=== PATIENT | female | born 1960 | race Caucasian/White ===

== ENCOUNTER 2022-06-04 08:05 | Observation (INO) | payer BC, SELFPAY ==
[2022-06-04] VITALS (24 sets, daily range): BP systolic 87–123; BP diastolic 53–86; PULSE 54–68; RESP 9–26; TEMP 36–37; O2SAT 85–100; BMI 26.6
--- NOTE | ~2022-06-04 | XR_ITS ---
EXAMINATION: XR chest 2V DATE: 06/04/2022 08:56 INDICATION: Shortness of breath. TECHNIQUE: Frontal and lateral views of the chest were obtained. COMPARISON: None. FINDINGS: The chest demonstrates clear lungs without pneumonia, pleural effusion, or pneumothorax. Th e heart size is normal. Surgical clips in the right upper quadrant are likely from cholecystectomy. IMPRESSION: 1. No acute cardiopulmonary disease. Reviewed, dictated and finalized at location B.
--- NOTE | 2022-06-04 08:10 | ECG_ITS ---
Measurements Intervals [place] Rate: 66 P: 57 SD: 155 QRS: -14 QRSD: 110 T: 72 QT: 398 QTc: 418 Interpretive Statements SINUS RHYTHM POOR R-WAVE PROGRESSION MODERATE T-WAVE ABNORMALITY, CONSIDER LATERAL ISCHEMIA ABNORMAL ECG NO PREVIOUS ECG AVAILABLE FOR COMPARISON Electronically Signed On 06-04-2022 14:58:00 CDT by Ahmet Rocha M.D.
--- NOTE | 2022-06-04 08:33 | PC.NURSE ---
Pt said she took [employer] COORDIN[employer].
[2022-06-04 08:58] LABS: Basophils Percent Auto 0.5 % (0.2-1.2); Eosinophils Absolute Auto 0.1 K/mm3 (0-0.3); Eosinophils Percent Auto 1.9 % (0-4.4); Hematocrit 42.1 % (37.0-47.0); Hemoglobin 13.9 g/dL (12.0-15.0); Immature Granulocyte Absolute 0.02 K/mm3 (0.00-0.031); Immature Granulocyte Percent A 0.3 % (0-0.5); Lymphocytes Absolute Auto 1.92 K/mm3 (0.9-3.2); Lymphocytes Percent Auto 33.2 % (18.3-44.2); Mean Corpuscular Hemoglobin 30.8 pg (26-34); Mean Corpuscular Volume 93.1 fl (80-100); Mean Platelet Volume 10.1 fl (7.4-10.4); Monocytes Absolute Auto 0.5 K/mm3 (0.1-0.6); Monocytes Percent Auto 8.3 % (2.6-8.5); Neutrophils Absolute Auto 3.2 K/mm3 (1.3-6.7); Neutrophils Percent Auto 55.8 % (45.5-73.1); Platelet Count Result 249 k/mm3 (150-375); Red Blood Count 4.52 M/mm3 (4.2-5.4); Red Cell Distribution Width 12.6 % (11.5-14.5); White Blood Count 5.8 K/mm3 (4.5-10.0)
[2022-06-04 09:10] LABS: Partial Thromboplastin Time 28.5 SECONDS (22.3-36.8)
[2022-06-04 09:55] LABS: Alanine Aminotransferase 26 U/L (6-35); Albumin Level 4.6 g/dL (3.5-5.1); Alkaline Phosphatase 63 U/L (38-126); Anion Gap 10 mmol/L (8-16); Aspartate Amino Transferase 28 U/L (14-36); Bilirubin,Total 0.6 mg/dL (0.2-1.3); Blood Urea Nitrogen 19 mg/dL (7-17); Calcium 9.6 mg/dL (8.4-10.2); Carbon Dioxide 25 mmol/L (22-30); Chloride 105 mmol/L (98-107); Estimated CRCL calculation 70 ml/min; Estimated Glomerular Filt Rate > 60; Glucose 97 mg/dL (65-110); Lipase 70 U/L (23-300); Potassium 3.7 mmol/L (3.4-5.0); Sodium 140 mmol/L (137-145)
[2022-06-04] MEDS: NITROGLYCERIN SL 0.4 MG TABLET SUBLINGUAL (10:02)
[2022-06-04 10:04] LABS: Troponin I < 0.012 ng/mL (0.000-0.034)
--- NOTE | 2022-06-04 10:08 | ED.GENADULT ---
HPI - General Adult General Chief complaint: Chest Pain Stated complaint: CP Time Seen by Provider: 06/04/22 08:09 History of Present Illness HPI narrative: Patient is a 61-year-old female who presents ER with chest and back pain. Ongoing for 2 days. She feels a pressure in her central chest and has had aching pain in between her shoulder blades. Slight worsening with exertion. No radiation up the neck or down the arm. No runny nose or sore throat or productive cough. Reports family history in both her mother and father of heart disease. Her recently had a STEMI and she is currently under stress due to placing her father in memory care. Patient is found no alleviating factors. She has tried Tylenol and ibuprofen which typically help her pain but not at this time. Related Data Home Medications Medication Instructions Recorded Confirmed alendronate 35 mg tablet 35 mg PO WEEKLY 06/14/21 06/04/22 biotin 5,000 mcg disintegrating 5,000 mcg PO DAILY 06/14/21 06/04/22 tablet krill oil 500 mg capsule 500 mg PO DAILY 06/14/21 06/04/22 losartan 100 mg tablet 100 mg PO DAILY 06/14/21 06/04/22 omeprazole 40 mg capsule,delayed 40 mg PO DAILY 06/14/21 06/04/22 release spironolactone 50 mg tablet 50 mg PO DAILY 06/14/21 06/04/22 Allergies Allergy/AdvReac Type Severity Reaction Status Date / Time Penicillins Allergy Mild Rash Verified 06/04/22 08:31 Review of Systems Review of Systems: All systems reviewed & are unremarkable except as noted in HPI and below Constitutional: Constitutional: Denies chills and Denies fever(s) ENT: Denies nasal congestion and Denies sore throat Cardiovascular: Cardiovascular: Reports chest pain, Denies rapid heart rate and Denies radiating jaw, neck or arm pain Respiratory: Respiratory: Denies cough and Denies dyspnea Gastrointestinal: Gastrointestinal: Denies abdominal pain, Denies diarrhea, Denies nausea and Denies vomiting Genitourinary: Genitourinary: Denies nocturia and Denies dysuria Musculoskeletal: Musculoskeletal: Reports back pain, Denies arthralgias and Denies joint swelling [facility] Past Medical History Medical History (Updated 06/04/22 @ 18:00 by Brian Carlson MD) Gastroesophageal reflux disease Hypertension Surgical History Surgical History (Updated 06/04/22 @ 14:12 by Amber Brown PA-C) History of cholecystectomy History of tonsillectomy Family History Family History (Updated 06/04/22 @ 14:53 by Juliane Sanchez RN) Mother Family history of heart disease in male family member before age 55 Rectal cancer Family history of diabetes mellitus in first degree relative Hypertension Father Family history of heart disease in male family member before age 55 Malignant neoplasm of prostate Hypertension Cerebrovascular accident Other Family history of allergic disorder Social History Social History (Updated 06/04/22 @ 14:13 by Amber Brown PA-C) Social History: Surrogate medical decision maker: Code status: Smoking status: Never smoker Alcohol intake: never Substance use: never Additional occupation/education comments: [employer] , [employer]. Spiritual care concerns: No Exam Narrative: GENERAL: Well-appearing, well-nourished, and in no acute distress. HEAD: Normocephalic, atraumatic. EYES: PERRL and EOMI. CHEST: Clear to auscultation. No respiratory distress. HEART: Regular rate and rhythm. Normal peripheral pulses. ABDOMEN: Soft, nontender, nondistended. EXTREMITIES: Normal range of motion. No edema. SKIN: Warm, dry, no rash. NEURO: Alert and oriented x3. PSYCH: Normal mood and affect. Course Vital Signs Vital signs: Vital Signs Temperature 98.6 F 06/04/22 08:12 Pulse Rate 68 06/04/22 08:12 Respiratory Rate 18 06/04/22 08:12 Blood Pressure 123/86 06/04/22 08:12 Pulse Oximetry 100 06/04/22 08:12 Oxygen Delivery Room Air 06/04/22 08:12 Temperature 96.8 F L 10/0
[2022-06-04] MEDS: SODIUM CHLORIDE 0.9% IV 500 ML 999 ML IV CONT (10:37)
[2022-06-04 12:05] LABS: Troponin I < 0.012 ng/mL (0.000-0.034)
--- NOTE | 2022-06-04 14:00 | PM.IMHP ---
H&P: HPI History of Present Illness Date/Time: 06/04/22 14:00 Chief Complaint: Chest pain. Narrative: This is a very pleasant 61-year-old female with hypertension and GERD who presented to the emergency department from home for evaluation of chest pain. She has had intermittent pressure-like discomfort in the substernal region radiating through to the scapula for the last 2 days. She has perhaps a little bit of shortness of breath and nausea with these episodes but not every time. She has not noticed a pattern as to when it occurs and she specifically denies that it occurs with exertion. In fact she exercises daily (walks or stationary bike) and she has not noticed that her chest discomfort is worse with these activities. Initially she thought perhaps her GERD was acting up and she felt that the discomfort in her scapula were is related to scoliosis. Her initial troponin was negative in the emergency department. EKG showed a sinus rhythm with some moderate T-wave abnormalities in the lateral leads and she is being admitted in this setting. About 14 years ago she had some chest discomfort at which time she had a stress echocardiogram due to abnormal findings on EKG. That stress echo was reportedly unremarkable and she has not had issues since that time. At the time my evaluation she is resting comfortably. She has occasional ?fluttering? in her chest and is noticed that she has occasional PVCs. She admits that she has had high stress recently as her had a heart attack 2 weeks ago and she recently had to move her father to a memory care center. Review of Systems Review of Systems: Twelve systems were reviewed. No syncope or near syncope. She has no known history of cardiac disease. Fever, chills, or sweats. No recent cold or flu symptoms. No abdominal or epigastric pain. She has had some nausea. No vomiting. No diarrhea. Except as documented, all other systems were reviewed and are negative. [facility] Past Medical History Medical History Gastroesophageal reflux disease Hypertension Surgical History Surgical History History of cholecystectomy History of tonsillectomy Family History Family History Mother Family history of heart disease in male family member before age 55 Rectal cancer Family history of diabetes mellitus in first degree relative Hypertension Father Family history of heart disease in male family member before age 55 Malignant neoplasm of prostate Hypertension Cerebrovascular accident Other Family history of allergic disorder Social History Social History (Updated 06/05/22 @ 00:12 by Amber Brown PA-C) Social History: Surrogate medical decision maker: Joel Ramires, spouse. Code status: Full code. 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 Spiritual care concerns: No Meds Home Medications and Allergies Home Medications Medication Instructions Recorded Confirmed Type alendronate 35 mg tablet 35 mg PO WEEKLY 06/14/21 06/04/22 History biotin 5,000 mcg disintegrating 5,000 mcg PO DAILY 06/14/21 06/04/22 History tablet krill oil 500 mg capsule 500 mg PO DAILY 06/14/21 06/04/22 History losartan 100 mg tablet 100 mg PO DAILY 06/14/21 06/04/22 History omeprazole 40 mg capsule,delayed 40 mg PO DAILY 06/14/21 06/04/22 History release spironolactone 50 mg tablet 50 mg PO DAILY 06/14/21 06/04/22 History Allergies Allergy/AdvReac Type Severity Reaction Status Date / Time Penicillins Allergy Mild Rash Verified 06/04/22 08:31 Vital Signs Vital Signs - 24 hr 06/04/22 08:12 06/04/22 08:18 06/04/22 08:24 Temperature 98.6 F Pulse Rate 68 63 Respiratory Rate 18 Blood Press
--- NOTE | 2022-06-04 14:55 | ADMGEN ---
This patient, Valentín Ramires, was admitted to IMU Room 201-01. Patient/family oriented to hospital policies and general routines including ID bracelet, bed and alarms, visiting hours, pain management, procedures, bathroom and other care routines, personal items, smoking policy, room service/diet, and visiting hours. Information on how to activate the Rapid Response Team has been discussed. Patient/Family are encouraged to report perceived risks to care and to ask questions if they do not understand what they are told or what they should do.
[2022-06-04 15:04] LABS: Troponin I < 0.012 ng/mL (0.000-0.034)
--- NOTE | 2022-06-04 15:10 | PM.CNCAR ---
Assessment and Plan Assessment and plan (1) Chest pain: Code(s): R07.9 - Chest pain, unspecified Status: Acute Plan This is a 61-year-old lady who has no prior history of cardiac disease who has been under lot of stress with her 's illness as well as her father having to be placed in a memory care facility. She has been having episodes of interscapular back pain sometimes radiating into the anterior aspect of the chest for about a week or so. The symptoms are obviously concerning. Fortunately they are not exertional and fortunately she does not have any evidence of myocardial injury with negative troponins. I am going to recommend a stress echocardiogram tomorrow as an ischemia evaluation. Further recommendations are pending those findings Junior Hooper MD [facility] History of Present Illness History of Present Illness Consult date/time: 06/04/22 15:10 Consult reason: chest pain Reason For Visit: Chest Pain Narrative: This is a very pleasant 61-year-old lady I am seeing at the request of the hospitalist because of chest pain. She is unknown to me prior to this encounter and does not have any prior history of coronary artery disease. She states that she came to the emergency room this morning because she has been having episodes of chest and interscapular back pain for about 3 or 4 days before coming in this began up to a week ago with episodes of interscapular back pain and several days ago this became associated with a sensation of some central chest discomfort. The symptoms seem to come and go in an unpredictable fashion they are not necessarily associated with physical activity such as walking. She was does exercise on a stationary bike that she has at home for fitness and has not noticed main difficulty performing this type of exertion. In any event she became concerned about her cardiac status because her recently suffered a myocardial infarction and because of the symptoms presented to the emergency room this morning. She also says that she has been under a lot of stress because she has recently had to have her father placed in a memory care facility. In the emergency room she appeared to be stable her electrocardiogram shows sinus rhythm with a leftward axis and precordial nonspecific T-wave abnormality. Her troponin levels times the 1st 2 sets are normal. She is in no distress at this time and offers no complaints she is currently admitted to IMU for evaluation. She denies any history of diabetes or dyslipidemia. She is a lifelong nonsmoker. Does not have a family history of premature coronary artery disease. 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 She does report that she had an ischemic workup about 12 or 13 years ago for symptoms of occasional interscapular pain and states that to the best of her recollection the results were negative Review of Systems Constitutional: Constitutional: Reports no additional constitutional complaints Eyes: Eyes: Reports no additional eye complaints ENT: Reports system reviewed and no additional complaints, except as documented Cardiovascular: Cardiovascular: Reports as per HPI Respiratory: Respiratory: Reports no additional respiratory complaints Gastrointestinal: Gastrointestinal: Reports no additional gastrointestinal complaints Musculoskeletal: Musculoskeletal: Reports as per HPI Comments: Intermittent interscapular pain Neurologic: Reports system reviewed and no additional complaints, except as documented Endocrine: Endocrine: Reports no additional endocrine complaints Hematologic/Lymphatic: Hematologic/Lymphatic: Reports no additional hematologic/lymphatic complaints Allergic/Immunologic: Allergic/Immunologic: Reports no additional allergic/immunologic complaints [facility] Past Medical History Medical History (Updated 06/04/22 @ 14:13 by Amber Brown PA-C) Gastroesophageal reflux disease Hypertension Surgical His
[2022-06-04] MEDS: ACETAMINOPHEN 325 MG TABLET 650 MG PO (21:57)
[2022-06-05] VITALS (15 sets, daily range): BP systolic 93–118; BP diastolic 55–77; PULSE 57–74; RESP 14–20; TEMP 36.4–36.8; O2SAT 97–100
--- NOTE | 2022-06-05 | EST_ITS ---
Patient Info Name: Valentín Ramires Age: 61 years : 1960 Gender: Female Ht: 65 in Wt: 155 lbs BSA: 1.81 m2 HR: 67 bpm BP: 116 / 75 mmHg Heart Rhythm: Sinus Rhythm Technical Quality: Fair Exam Date: 06/05/2022 11:39 AM Exam Location: [facility] Patient Status: Inpatient Admit Date: 06/04/2022 Staff Ordering Physician: Junior Hooper MD Security Investigator: Zakiya Weiss RDCS Attending Provider: ANA LILIA SANDERS NP Referring Physician: Sandie SANDERS; Exam Type: CA stress echo Study Info Indications R07.9 - Chest pain, unspecified Treadmill exercise stress echocardiogram is performed. Summary 1. While at rest, patient became tachycardic with heart rates in the 120s BPM. ECG showing 1-1.5mm upsloping ST depressions in the inferolateral leads. 2. Target heart rate was met, however, patient underwent minimal exercise. 3. At 48 seconds into exercise, ST depressions progressed to 2mm upsloping depressions with ST elevation in lead AVR. These changes improved with decrease in heart rate. 4. No arrhythmias were observed during the examination. 5. Normal left venticular systolic function with no regional wall motion abnormalities noted at rest. 6. Left ventricular ejection fraction estimated at 60-65%. 7. Overall global left ventricular systolic function Improved post stress. 8. No regional wall motion abnormalities noted post stress. 9. Significantly abnormal stress ECG concerning for ischemia, however, stress echocardiogram images were normal. Stress Echo Findings Left Ventricle Normal left venticular systolic function with no regional wall motion abnormalities noted at rest. Left ventricular ejection fraction estimated at 60-65%. Overall global left ventricular systolic function Improved post stress. No regional wall motion abnormalities noted post stress. Ventricles Name Value Normal LV Fractional Shortening/Ejection Fraction 2D/MM Visually Estimated EF 60 % 54-74 Protocol: [place] Stress ECG Details Stage: REST Duration (min): 2 min : 8 sec Speed (mph): 0.0 Grade (%): 0 HR (bpm): 61 SBP (mmHg): 116 DBP (mmHg): 75 METS: --- Stage: REST Duration (min): 16 min : 43 sec Speed (mph): 0.0 Grade (%): 0 HR (bpm): 137 SBP (mmHg): 116 DBP (mmHg): 75 METS: --- Stage: STAGE 1 Duration (min): 0 min : 48 sec Speed (mph): 0.0 Grade (%): 0 HR (bpm): 161 SBP (mmHg): 116 DBP (mmHg): 75 METS: --- Stage: RECOVERY Duration (min): 0 min : 11 sec Speed (mph): 0.0 Grade (%): 0 HR (bpm): 152 SBP (mmHg): 116 DBP (mmHg): 75 METS: --- Stage: RECOVERY Duration (min): 1 min : 11 sec Speed (mph): 0.0 Grade (%): 0 HR (bpm): 113 SBP (mmHg): 116 DBP (mmHg): 75 METS: --- Stage: RECOVERY Duration (min): 2 min : 11 sec Speed (mph): 0.0 Grade (%): 0 HR (bpm): 109 SBP (mmHg): 116 DBP (mmHg): 75 METS: --
[2022-06-05 04:54] LABS: Cholesterol 181 mg/dL (0-200); HDL Direct 38 mg/dL; Triglycerides 133 mg/dL (<150)
[2022-06-05 05:04] LABS: LDL Cholesterol Direct 96 mg/dL
[2022-06-05 05:34] LABS: Thyroid Stimulating Hormone Reflex 0.637 uIU/mL (0.465-4.68)
[2022-06-05] MEDS: ASPIRIN 81 MG CHEWABLE TABLET PO (08:11)
[2022-06-05] MEDS: PANTOPRAZOLE 40 MG TABLET PO ×2 (08:11→17:08)
--- NOTE | 2022-06-05 13:07 | PM.PNCARD ---
Progress Note: A&P Assessment and Plan (1) Chest pain: Code(s): R07.9 - Chest pain, unspecified Status: Acute Assessment and Plan: Week long history of intrascapular back pain which sometimes radiates to the anterior chest. An exercise stress test was performed today. ECG portion of the test was significantly abnormal with ST changes consistent with ischemia. However, echocardiogram was normal. Despite normal echo images, recommended coronary angiogram because of significantly abnormal ECG portion of stress test. Patient agrees to undergo coronary angiogram. Discussed possible risks of cath with patient and her and they agree to proceed. NPO after midnight. Further recommendations following the cath. Subjective Date/time seen: 06/05/22 13:07 Cardiology follow up for chest pain Feeling well today and denies any chest pain, shortness of breath. She does feel very anxious prior to her stress test today. Review of Systems Constitutional: Constitutional: Reports no additional constitutional complaints Eyes: Eyes: Reports no additional eye complaints ENT: Reports system reviewed and no additional complaints, except as documented Cardiovascular: Cardiovascular: Reports as per HPI Respiratory: Respiratory: Reports no additional respiratory complaints Gastrointestinal: Gastrointestinal: Reports no additional gastrointestinal complaints Musculoskeletal: Musculoskeletal: Reports as per HPI Neurologic: Reports system reviewed and no additional complaints, except as documented Endocrine: Endocrine: Reports no additional endocrine complaints Hematologic/Lymphatic: Hematologic/Lymphatic: Reports no additional hematologic/lymphatic complaints Allergic/Immunologic: Allergic/Immunologic: Reports no additional allergic/immunologic complaints Exam Const: General: comfortable and no acute distress Other: Pleasant lady appearing her stated age comfortable cooperative no distress at all HENMT: Mouth: Yes moist mucous membranes Eyes: Sclera: sclerae normal Pupils: Equal, round and reactive pupils present Neck: Neck: supple and no JVD Other: Normal carotid upstrokes without any bruits Resp: Effort & Inspection: normal respiratory effort Auscultation: clear to auscultation bilaterally Cardio: Rate: regular rate Rhythm: regular rhythm Other: PMI is not displaced and of normal activity normal S1-S2 no murmur no gallop GI: Auscultation: normal bowel sounds Skin: General skin exam: normal color Neuro: Cranial nerves: Yes Equal, round and reactive pupils present Extrem: General: normal to inspection Objective Data Vital Signs Vital Signs: Vital Signs - 24 hr 06/04/22 14:01 06/04/22 15:03 06/04/22 14:50 Temperature 36.2 C L Pulse Rate 67 58 L Respiratory Rate 13 16 Blood Pressure 101/68 95/57 L Pulse Oximetry 100 96 100 Oxygen Delivery Room Air 06/04/22 14:50 06/04/22 16:00 06/04/22 16:00 Temperature 36.0 C L Pulse Rate 60 61 Respiratory Rate 18 Blood Pressure 96/53 L Pulse Oximetry 97 Oxygen Delivery Room Air 06/04/22 20:00 06/04/22 20:00 06/04/22 20:00 Temperature 36.5 C Pulse Rate 61 63 Respiratory Rate 18 Blood Pressure 101/70 Pulse Oximetry 97 Oxygen Delivery Room Air 06/04/22 23:20 06/04/22 22:00 06/05/22 00:05 Temperature 36.7 C Pulse Rate 66 61 Respiratory Rate 18 Blood Pressure 107/61 Pulse Oximetry 97 97 Oxygen Delivery Room Air 06/05/22 00:00 06/05/22 02:00 06/05/22 04:00 Temperature Pulse Rate 60 59 L Respiratory Rate Blood Pressure Pulse Oximetry Oxygen Delivery Room Air 06/05/22 04:00 06/05/22 04:00 06/05/22 06:00 Temperature 36.5 C Pulse Rate 62 57 L 64 Respiratory Rate 18 Blood Pressure 108/55 L Pulse Oximetry 99 Oxygen Delivery 06/05/22 08:00 06/05/22 08:00 06/05/22 08:00 Temperature 36.4 C Pulse Rate 64 71 70 Respiratory Rate 18 14 Blood Pr
[2022-06-05] MEDS: LOSARTAN POTASSIUM 100 MG TABLET PO (14:40)
[2022-06-05] MEDS: SPIRONOLACTONE 50 MG TABLET PO (14:40)
--- NOTE | 2022-06-05 17:18 | PM.IMPN ---
Progress Note: A&P Assessment and Plan (1) Chest pain: Code(s): R07.9 - Chest pain, unspecified Status: Acute (2) Hypertension: Code(s): I10 - Essential (primary) hypertension Status: Acute (3) Gastroesophageal reflux disease: Code(s): K21.9 - Gastro-esophageal reflux disease without esophagitis Status: Acute Plan The patient presented to the emergency department for evaluation of substernal chest pressure that has been occurring intermittently over the last couple of days, at times associated with mild shortness of breath and nausea. Serial troponins normal. EKG showed normal sinus rhythm with poor R-wave progression and moderate T-wave abnormalities. Patient underwent stress echo. While at rest prior to the test, patient became tachycardic with heart rate 120 with EKG showing 1-1.[address] depression in inferior lateral leads. At 48 seconds into exercise, ST depression progressed to 2 mm upsloping depressions with ST elevation in lead AVR. These changes improved with decrease in heart rate. Echo showed normal LV systolic function with no regional wall motion abnormalities noted at rest or post stress. Given the incongruency of her findings with abnormal EKG but normal echo, heart catheterization was offered. Plan is for patient to be held overnight, NPO after midnight with heart catheterization to be performed in the morning. Subjective Date/time seen: 06/05/22 0800 Interval history: 61yo female with HTN here for chest pain. Patient describes her chest discomfort as ?heavy? with a ?flutter?. Symptoms did not appear to change with activity. There were not pleuritic are palpable. She does have a headache today. No radiation to the pain. No shortness of breath or lightheadedness. Exam Narrative: AF 97.7 106/63 70 14 100% ra Gen - NARD Chest - CTA bilaterally, nml RR CV - RRR S1/S2; Tele showing no significant dysrhythmias Abd - Soft, NT/ND, Positive BS Ext - No pedal edema Psych - Nml mood and affect Skin - Warm and dry Objective Data Vital Signs Vital Signs: Vital Signs - 24 hr 06/04/22 20:00 06/04/22 20:00 06/04/22 20:00 Temperature 97.7 F Pulse Rate 61 63 Respiratory Rate 18 Blood Pressure 101/70 Pulse Oximetry 97 Oxygen Delivery Room Air 06/04/22 23:20 06/04/22 22:00 06/05/22 00:05 Temperature 98.1 F Pulse Rate 66 61 Respiratory Rate 18 Blood Pressure 107/61 Pulse Oximetry 97 97 Oxygen Delivery Room Air 06/05/22 00:00 06/05/22 02:00 06/05/22 04:00 Temperature Pulse Rate 60 59 L Respiratory Rate Blood Pressure Pulse Oximetry Oxygen Delivery Room Air 06/05/22 04:00 06/05/22 04:00 06/05/22 06:00 Temperature 97.7 F Pulse Rate 62 57 L 64 Respiratory Rate 18 Blood Pressure 108/55 L Pulse Oximetry 99 Oxygen Delivery 06/05/22 08:00 06/05/22 08:00 06/05/22 08:00 Temperature 97.6 F Pulse Rate 64 71 70 Respiratory Rate 18 14 Blood Pressure 118/77 Pulse Oximetry 99 100 Oxygen Delivery Room Air 06/05/22 10:00 06/05/22 14:00 06/05/22 16:00 Temperature 97.7 F Pulse Rate 71 65 74 Respiratory Rate 14 Blood Pressure 106/63 Pulse Oximetry 100 Oxygen Delivery 06/05/22 16:00 06/05/22 16:00 Temperature Pulse Rate 74 70 Respiratory Rate 14 Blood Pressure Pulse Oximetry 100 Oxygen Delivery Room Air Intake/Output Intake/Output: Intake & Output 06/02/22 06/03/22 06/04/22 06/05/22 23:59 23:59 23:59 23:59 Intake Total 1460 1570 Balance 1460 1570 Meds/Results Medications: Active Medications Generic Name Dose Route Start Last Admin Trade Name Diana PRN Reason Stop Dose Admin Acetaminophen 650 mg 06/04/22 12:58 06/04/22 21:57 Acetaminophen 325 Mg Tablet PO 650 mg Q4H PRN Administration Mild Pain (1-3) or Fever Hydrocodone Bitart/Acetaminophen 1 tab 06/04/22 12:58 Hydrocodone/Acetaminophen (*Crx) 5-325
[2022-06-05] MEDS: ACETAMINOPHEN 325 MG TABLET 650 MG PO (20:21)
[2022-06-06] VITALS (25 sets, daily range): BP systolic 83–108; BP diastolic 57–69; PULSE 52–86; RESP 14–20; TEMP 36.4–36.9; O2SAT 97–100
[2022-06-06] MEDS: SODIUM CHLORIDE 0.9% IV 1,000 ML 999 ML IV CONT (06:22)
[2022-06-06] MEDS: PANTOPRAZOLE 40 MG TABLET PO (08:39)
[2022-06-06] MEDS: LOSARTAN POTASSIUM 100 MG TABLET PO (08:39)
[2022-06-06] MEDS: SPIRONOLACTONE 50 MG TABLET PO (08:39)
[2022-06-06] MEDS: ASPIRIN 81 MG CHEWABLE TABLET PO (08:39)
--- NOTE | 2022-06-06 11:12 | PM.PNCARD ---
Progress Note: A&P Assessment and Plan (1) Chest pain: Code(s): R07.9 - Chest pain, unspecified Status: Acute Plan Cardiac cath this AM. Further recommendations pending results of cardiac cath. Subjective Date/time seen: 06/06/22 11:12 Interval history: Patient seen and examined this morning at bedside. Doing well. No further episodes of chest pain. No other cardiac symptoms. Planned for cath this morning. Review of Systems Review of Systems: All systems reviewed & are unremarkable except as noted in HPI and below (subjective) Exam Const: General: comfortable and no acute distress HENMT: Mouth: Yes moist mucous membranes Eyes: General: appearance normal, both eyes and all related structures Neck: Neck: supple and No no JVD Resp: Effort & Inspection: normal respiratory effort Auscultation: clear to auscultation bilaterally Cardio: Rate: regular rate Rhythm: regular rhythm Heart sounds: no murmurs GI: GI Palp: Yes Soft to palpation and No Tenderness to palpation present (GI) Skin: General skin exam: normal color Neuro: Speech: normal speech Extrem: General: no edema Psych: Mental Status: mental status grossly normal Objective Data Vital Signs Vital Signs: Vital Signs - 24 hr 06/05/22 14:00 06/05/22 16:00 06/05/22 16:00 Temperature 36.5 C Pulse Rate 65 74 74 Respiratory Rate 14 14 Blood Pressure 106/63 Pulse Oximetry 100 100 Oxygen Delivery Room Air 06/05/22 16:00 06/05/22 18:00 06/05/22 19:49 Temperature 36.8 C Pulse Rate 70 73 74 Respiratory Rate 18 Blood Pressure 98/73 L Pulse Oximetry 100 Oxygen Delivery 06/05/22 20:20 06/05/22 20:00 06/05/22 20:00 Temperature Pulse Rate 72 Respiratory Rate Blood Pressure 94/63 L Pulse Oximetry 100 Oxygen Delivery Room Air 06/05/22 22:00 06/05/22 23:30 06/06/22 00:00 Temperature 36.6 C Pulse Rate 63 65 Respiratory Rate 20 Blood Pressure 93/61 L Pulse Oximetry 98 98 Oxygen Delivery Room Air 06/06/22 00:00 06/06/22 04:00 06/06/22 02:00 Temperature 36.5 C Pulse Rate 61 58 L 54 L Respiratory Rate 20 Blood Pressure 88/60 L Pulse Oximetry 100 Oxygen Delivery 06/06/22 04:00 06/06/22 04:00 06/06/22 05:50 Temperature Pulse Rate 60 Respiratory Rate Blood Pressure 88/60 L Pulse Oximetry 100 Oxygen Delivery Room Air 06/06/22 06:00 06/06/22 08:04 06/06/22 08:00 Temperature 36.5 C Pulse Rate 57 L 61 61 Respiratory Rate 14 14 Blood Pressure 108/66 Pulse Oximetry 100 100 Oxygen Delivery Room Air 06/06/22 08:00 06/06/22 10:00 Temperature Pulse Rate 86 64 Respiratory Rate Blood Pressure Pulse Oximetry Oxygen Delivery Intake/Output Intake/Output: Intake & Output 06/03/22 06/04/22 06/05/22 06/06/22 23:59 23:59 23:59 23:59 Intake Total 1460 1810 1200 Balance 1460 1810 1200 Meds/Results Medications: Active Medications Generic Name Dose Route Start Last Admin Trade Name Freq PRN Reason Stop Dose Admin Acetaminophen 650 mg 06/04/22 12:58 06/05/22 20:21 Acetaminophen 325 Mg Tablet PO 650 mg Q4H PRN Administration Mild Pain (1-3) or Fever Hydrocodone Bitart/Acetaminophen 1 tab 06/04/22 12:58 Hydrocodone/Acetaminophen (*Crx) 5-325 Mg Tablet PO Q4H PRN Pain Rated 4-6 Aspirin 81 mg 06/05/22 08:00 06/06/22 08:39 Aspirin 81 Mg Chewable Tablet PO 81 mg DAILY@0800 [facility] Administration Losartan Potassium 100 mg 06/05/22 09:00 06/06/22 08:39 Losartan Potassium 100 Mg Tablet PO 100 mg DAILY [facility] Administration Morphine Sulfate 4 mg 06/04/22 12:58 Morphine Sulfate (*Crx) 4 Mg/Ml Inj IV PUSH Q2H PRN Pain Rated 7-10 Ondansetron HCl 4 mg 06/04/22 12:58 Ondansetron Inj 4 Mg/2 Ml Vial IV PUSH Q4H PRN Nausea Pantoprazole Sodium 40 mg 06/05/22 09:00 06/06/22 08:39 Pantoprazole 40 Mg Tablet PO 40 mg BID [facility] Adm
--- NOTE | 2022-06-06 11:18 | PC.NURSE ---
Patient off floor to slab stripper at 1105. All vitals stable. Consent obtained and sent on chart with patient. Will continue to monitor.
--- NOTE | 2022-06-06 12:06 | WPDMODSED ---
Moderate Sedation Note-Pt Data Patient Data Diagnosis: Abnormal stress test Present Complaint: Chest pain, abnormal stress test Procedure to be performed/Plan: Cardiac cath, LHC Allergies Allergy/AdvReac Type Severity Reaction Status Date / Time Penicillins Allergy Mild Rash Verified 06/04/22 08:31 Home Medications Medication Instructions Recorded Confirmed Type alendronate 35 mg tablet 35 mg PO WEEKLY 06/14/21 06/04/22 History biotin 5,000 mcg disintegrating 5,000 mcg PO DAILY 06/14/21 06/04/22 History tablet krill oil 500 mg capsule 500 mg PO DAILY 06/14/21 06/04/22 History losartan 100 mg tablet 100 mg PO DAILY 06/14/21 06/04/22 History omeprazole 40 mg capsule,delayed 40 mg PO DAILY 06/14/21 06/04/22 History release spironolactone 50 mg tablet 50 mg PO DAILY 06/14/21 06/04/22 History Current Medications: Active Medications Acetaminophen (Acetaminophen 325 Mg Tablet) 650 mg PO Q4H PRN PRN Reason: Mild Pain (1-3) or Fever Last Admin: 06/05/22 20:21 Dose: 650 mg Hydrocodone Bitart/Acetaminophen (Hydrocodone/Acetaminophen (*Crx) 5-325 Mg Tablet) 1 tab PO Q4H PRN PRN Reason: Pain Rated 4-6 Aspirin (Aspirin 81 Mg Chewable Tablet) 81 mg PO DAILY@0800 [facility] Last Admin: 06/06/22 08:39 Dose: 81 mg Losartan Potassium (Losartan Potassium 100 Mg Tablet) 100 mg PO DAILY [facility] Last Admin: 06/06/22 08:39 Dose: 100 mg Morphine Sulfate (Morphine Sulfate (*Crx) 4 Mg/Ml Inj) 4 mg IV PUSH Q2H PRN PRN Reason: Pain Rated 7-10 Ondansetron HCl (Ondansetron Inj 4 Mg/2 Ml Vial) 4 mg IV PUSH Q4H PRN PRN Reason: Nausea Pantoprazole Sodium (Pantoprazole 40 Mg Tablet) 40 mg PO BID [facility] Last Admin: 06/06/22 08:39 Dose: 40 mg Perflutren Lipid Microsphere (Perflutren Lipid Microspheres 1.5 Ml Vial Diluted To 10 Ml Total Volume) 0 ml IV PUSH ONCE PRN; Protocol PRN Reason: adequate visualization Stop: 06/06/22 15:10 Spironolactone (Spironolactone 50 Mg Tablet) 50 mg PO DAILY [facility] Last Admin: 06/06/22 08:39 Dose: 50 mg Sedation/Anesthesia: No previous sedation/anesthesia problems (including family history). [facility] Past Medical History Medical History Gastroesophageal reflux disease Hypertension Surgical History Surgical History History of cholecystectomy History of tonsillectomy Family History Family History Mother Family history of heart disease in male family member before age 55 Rectal cancer Family history of diabetes mellitus in first degree relative Hypertension Father Family history of heart disease in male family member before age 55 Malignant neoplasm of prostate Hypertension Cerebrovascular accident Other Family history of allergic disorder Social History Social History Social History: Surrogate medical decision maker: Joel Ramires, spouse. Code status: Full code. 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 Spiritual care concerns: No Mod Sed Physical Exam Physical Exam Pre Procedural Exam: Normal: Appearance, Lungs, Heart Rate, Heart Rhythm, Neuro Exam, Abdomen, Extremities and Skin Hours since solid foods: 10 Hours since liquid intake: 8 Mallampati Classification: class II Internal Medicine - PN: Obj Da Vital Signs Vital Signs: Vital Signs - 24 hr 06/05/22 14:00 06/05/22 16:00 06/05/22 16:00 Temperature 36.5 C Pulse Rate 65 74 74 Respiratory Rate 14 14 Blood Pressure 106/63 Pulse Oximetry 100 100 Oxygen Delivery Room Air 06/05/22 16:00 06/05/22 18:00 06/05/22 19:49 Temperature 36.8 C Pulse Rate 70 73 74 Respiratory Rate 18 Blood Pressure 98/73 L Pulse Oximetry 100 Oxygen Delivery 06/05/22
--- NOTE | 2022-06-06 12:10 | WPDCARDPROC ---
Cardiac Cath Procedure Note Date of procedure:: 06/06/22 Performing physician:: [facility]HETERIZATION LABORAT[facility] REPORT Procedure Date: 06/06/2022 Kindergarten Teacher Assistant: Conrad Otero M.D., [facility]? Referring Physician: Conrad Otero M.D. ? Anesthesia: Versed and Fentanyl were ordered and given in my presence at 11:30, procedure ended at 11:50. Supervision of nurse monitored moderate sedation with Versed and Fentanyl was provided for 20 minutes. Pre-op Diagnosis: Abnormal stress test, concern for obstructive coronary artery disease Post-op Diagnosis: Non-obstructive coronary arteries Procedure(s): Coronary angiography Access Site: Right radial artery Brief History and Clinical Indications: Patient is a 61-year-old female with a history of hypertension and GERD who presented with chest pain. Troponins were negative. Patient underwent exercise stress echo which showed significantly abnormal stress EKG concerning for significant coronary artery disease, although the echo images were normal. Given the stress ECG abnormalities, patient referred for C. All risks, benefits and alternatives to left heart catheterization with or without percutaneous coronary intervention was discussed at length with the patient. Risk of complications including but not limited to bleeding, infection, arrhythmia, stroke, worsening kidney function, blood loss, groin hematoma, limb loss, emergency coronary artery bypass grafting, and even were discussed with the patient and all questions were answered. The patient understood and wished to proceed. Time out called, patient name, date of , medical record number, allergies, procedure performed, identify Kindergarten Teacher Assistant, patient and staff member concurred with accurate data, procedure carried on. Findings: LEFT HEART CATHETERIZATION FINDINGS: 1. Left main: Large caliber vessel. The left main coronary artery is widely patent without any significant obstructive disease. 2. Left anterior descending: Large caliber vessel. The LAD and the diagonal branches have mild luminal irregularities without any significant obstructive angiographic disease. 3. Left circumflex: Large caliber vessel. The left circumflex artery and the main marginal branches have mild luminal irregularities without any significant obstructive angiographic disease. 4. Right coronary artery: Large caliber vessel. The RCA has mild luminal irregularities without any significant obstructive angiographic disease. The RCA is the dominant vessel. Slow flow noted in the RCA. Description of Procedure: Informed consent signed and placed in the chart. Patient transferred to salvage laborer room. Prepped and draped in usual sterile fashion. 2% lidocaine injected subcutaneously in right wrist area. 22-gauge venipuncture catheter used to access the right radial artery with the Seldinger technique. 6-FR slender sheath placed in right radial artery. 200 mcg Nitroglycerine and 2.5mg Cardene was given intraarterial through the sheath. Versacore wire advanced under fluoroscopy 5F Tig 4 diagnostic catheter engaged Left Main Coronary Artery. 5F Tig 4 diagnostic catheter engaged Right Coronary Artery Multiple orthogonal angiogram obtained and reviewed Hemostasis was achieved by application of TR band. ? Assessment: Non-obstructive coronary arteries Post Operative Condition: Stable No significant blood loss Disposition: Floor Plan: The patient will be monitored in the recovery area. The above findings were discussed with the referring physician. Continue aggressive medical therapy and risk factor modification. Further recommendations and management per primary cardiology team. ? Conrad Otero M.D. Interventional Cardiology
[2022-06-06] MEDS: SODIUM CHLORIDE 0.9% IV 1,000 ML 125 ML IV CONT (12:30)
--- NOTE | 2022-06-06 17:04 | PM.DS ---
DS: Admitting Diagnosis Discharge Date 06/06/2022 Admitting Diagnosis Chest pain DS: Discharge Diagnosis Discharge Diagnosis (1) Chest pain: Code(s): R07.9 - Chest pain, unspecified Status: Acute (2) Hypertension: Code(s): I10 - Essential (primary) hypertension Status: Acute (3) Gastroesophageal reflux disease: Code(s): K21.9 - Gastro-esophageal reflux disease without esophagitis Status: Acute DS: Summary Hospital Course Hospital Course: The patient presented to the emergency department for evaluation of substernal chest pressure that has been occurring intermittently over the last couple of days, at times associated with mild shortness of breath and nausea. Serial troponin normal.? EKG showed normal sinus rhythm with poor R-wave progression and moderate T-wave abnormalities.? Patient underwent stress echo.? While at rest prior to the test, patient became tachycardic with heart rate 120 with EKG showing 1-1.[address] depression in inferior lateral leads.? At 48 seconds into exercise, ST depression progressed to 2 mm upsloping depressions with ST elevation in lead AVR.? These changes improved with decrease in heart rate.? Echo showed normal LV systolic function with no regional wall motion abnormalities noted at rest or post stress.? Given the incongruency of her findings with abnormal EKG but normal echo, heart catheterization was offered.?she underwent cardiac catheterization which only had non obstructive coronary arteries. Her chest pain is most likely atypical. Her chest pain resolved without no further recurrence. she remained hemodynamically stable throughout the hospital stay. Time Spent with Patient Time attestation: Total time spent providing and/or coordinating discharge services:45 mins Exam Narrative: Gen - NARD Chest - CTA bilaterally, nml RR CV - RRR S1/S2; Tele showing no significant dysrhythmias Abd - Soft, NT/ND, Positive BS Ext - No pedal edema cyanosis or clubbing Psych - Nml mood and affect Skin - Warm and dry DS: Data Procedures/Treatments: Cardiac Cath Procedure Note Date of procedure:: 06/06/22 Performing physician:: CATHETERIZATION [facility]ORAT[facility] REPORT Procedure Date: 06/06/2022 Band Attacher:?Conrad Otero M.D., [facility]? Referring Physician:?Conrad Otero M.D.?? Anesthesia: Versed and Fentanyl were ordered and given in my presence at 11:30, procedure ended at 11:50. Supervision of nurse monitored moderate sedation with Versed and Fentanyl was provided for 20 minutes. Pre-op Diagnosis: Abnormal stress test, concern for obstructive coronary artery disease Post-op Diagnosis: Non-obstructive coronary arteries Procedure(s): Coronary angiography Access Site: Right radial artery Brief History and Clinical Indications: Patient is a 61-year-old female with a history of hypertension and GERD who presented with chest pain. Troponins were negative. Patient underwent exercise stress echo which showed significantly abnormal stress EKG concerning for significant coronary artery disease, although the echo images were normal. Given the stress ECG abnormalities, patient referred for LHC. All risks, benefits and alternatives to left heart catheterization with or without percutaneous coronary intervention was discussed at length with the patient. Risk of complications including but not limited to bleeding, infection, arrhythmia, stroke, worsening kidney function, blood loss, groin hematoma, limb loss, emergency coronary artery bypass grafting, and even were discussed with the patient and all questions were answered. The patient understood and wished to proceed. Time out called, patient name, date of , medical record number, allergies, procedure performed, identify Band Attacher, patient and staff member concurred with accurate data, procedure carried on. Findings: LEFT HEART CATHETERIZATION FINDINGS: 1. Left main: Large caliber vesse
== END 2022-06-06 17:45 | disposition home or self-care (01) ==
LOC: ANHED 08:40 → ANHIMU 13:44
PROVIDERS: Internal Medicine; Physician Assistant; Admitting Provider Internal Medicine; Emergency Provider Emergency Medicine; PCP Family Medicine Sports Medicine; Visit Provider Internal Medicine
PROC: 4A023N7 Measurement of Cardiac Sampling and Pressure, Left Heart, Percutaneous Approach (ICD-10-PCS; CPT 93452; principal; 2022-06-06 10:00)
DX: R07.9 Chest pain, unspecified (principal); I25.10 Atherosclerotic heart disease of native coronary artery without angina pectoris; I10 Essential (primary) hypertension; R94.39 Abnormal result of other cardiovascular function study; K21.9 Gastro-esophageal reflux disease without esophagitis; Z79.899 Other long term (current) drug therapy; Z82.49 Family history of ischemic heart disease and other diseases of the circulatory system
CPT/HCPCS: 36415; 71046; 80053; 80061; 83690; 84443; 84484; 85025; 85610; 85730; 93005; 93351; 93458; 96360; 96361; 99285; A9270; C1769; C1887; C1894; G0378; J1644; J2250; J3010; J7030; J7040